=== PATIENT | female | born 1955 | race African-American/Black ===

== ENCOUNTER 2017-11-27 19:45 | Inpatient (IN) | payer MEDICARE, OTHER ==
[~2017-11-27] VITALS: Ht 162.6 cm; Wt 55.0 kg
[2017-11-27] MEDS ORDERED: ACETAMINOPHEN 500 MG TAB PO PRN (21:15)
[2017-11-27] MEDS ORDERED: hydrALAZINE HCL 20 MG/ML VL IV PRN (21:15)
[2017-11-27] MEDS ORDERED: HYDROcodone-ACET 5/325MG TAB PO PRN (21:15)
[2017-11-27] MEDS ORDERED: MORPHINE SULFATE 4 MG/ML SYR/VIAL IV PRN (21:15)
[2017-11-27 21:58] VITALS: BP 127/72
[2017-11-27 22:00] VITALS: BP 131/90
[2017-11-27] MEDS ORDERED: VANCOMYCIN PER PHARMACY 0 MG IV SCH (22:00)
[2017-11-27 22:29] LABS: Basophils # (auto) 0 uL; Eosinophils # (auto) 0.2 uL; Lymphocytes # (auto) 1.8 uL; Monocytes # (auto) 0.4 uL
[2017-11-27 22:31] LABS: Eosinophils % (auto) 3.8 % (0.0-7.0); Hematocrit 35.3 % (36.0-46.0); Hemoglobin 11.2 g/dL (12.2-16.2); Lymphocytes % (auto) 35.4 % (10.0-50.0); Mean Corpuscular Hemoglobin 24.4 pg (28.0-32.0); Mean Corpuscular Hgb Conc. 31.6 g/dL (32.0-36.0); Mean Corpuscular Volume 77.4 fL (80.0-100.0); Monocytes % (auto) 8.5 % (0.0-12.0); Neutrophils # (auto) 2.6 uL; Neutrophils % (auto) 51.3 % (37.0-80.0); Nucleated Red Blood Cells % 0.1 %; Platelet Count (auto) 192 10^3/uL (140-450); Red Blood Cells 4.56 10^6/uL (4.0-5.20); Red Cell Distribution Width 16.9 % (11.8-14.3)
[2017-11-27 22:43] LABS: Albumin 2.6 g/dL (3.4-5.0); BUN/Creatinine Ratio 35.8; Calcium 8.2 mg/dL (8.5-10.1); Potassium 3.8 mmol/L (3.5-5.1)
[2017-11-27 22:46] LABS: Bilirubin, Total 0.1 mg/dL (0.2-1.0); Total Protein 8.4 g/dL (6.4-8.2)
[2017-11-28] MEDS ORDERED: VANCOMYCIN 1GM/250ML 250 ML IV ONE
[2017-11-28] MEDS: PIPERACILLIN-TAZOB 3.375GM 100 ML IV SCH ×4 (00:27→17:41)
[2017-11-28 05:00] VITALS: BP 158/93
[2017-11-28 05:52] LABS: Basophils # (auto) 0 uL; Eosinophils # (auto) 0.1 uL; Monocytes # (auto) 0.5 uL; Nucleated Red Blood Cells % 0.1 %
[2017-11-28 05:55] LABS: Basophils % (auto) 0.4 % (0.0-2.0); Hematocrit 39.7 % (36.0-46.0); Hemoglobin 12.5 g/dL (12.2-16.2); Lymphocytes # (auto) 1.8 uL; Mean Corpuscular Hemoglobin 24.8 pg (28.0-32.0); Mean Corpuscular Hgb Conc. 31.4 g/dL (32.0-36.0); Mean Corpuscular Volume 78.9 fL (80.0-100.0); Monocytes % (auto) 10.5 % (0.0-12.0); Neutrophils # (auto) 2.4 uL; Neutrophils % (auto) 49.1 % (37.0-80.0); Platelet Count (auto) 195 10^3/uL (140-450); Red Blood Cells 5.03 10^6/uL (4.0-5.20); Red Cell Distribution Width 16.8 % (11.8-14.3); White Blood Cell 4.8 10^3/uL (4.4-10.8)
[2017-11-28] MEDS ORDERED: HYDR50TA15 PO (07:51)
[2017-11-28] MEDS ORDERED: HYDR-4683 GT (07:51)
[2017-11-28] MEDS ORDERED: ISOS30TA4 PO (07:51)
[2017-11-28] MEDS ORDERED: MULT-228 PO (07:51)
[2017-11-28] MEDS ORDERED: MOMLQ GT (07:51)
[2017-11-28] MEDS ORDERED: PHE100C PO (07:51)
[2017-11-28] MEDS ORDERED: SENN1TAB14 PO (07:51)
[2017-11-28] MEDS ORDERED: CLON0.1T PO (07:51)
[2017-11-28] MEDS ORDERED: METO-158 PO (07:51)
[2017-11-28] MEDS ORDERED: AMLO5TAB13 PO (07:51)
[2017-11-28] MEDS ORDERED: MEM5T GT (07:51)
[2017-11-28] MEDS ORDERED: FAMO-12 PO (07:51)
[2017-11-28] MEDS ORDERED: LACT10SO3 PO (07:51)
[2017-11-28] MEDS ORDERED: TRAV0.00 EACHEYE (07:51)
[2017-11-28] MEDS ORDERED: ALBU2TAB4 PO (07:51)
[2017-11-28] MEDS ORDERED: ATOR40TA52 PO (07:51)
[2017-11-28] MEDS ORDERED: ACET-1156 PO (07:51)
[2017-11-28] MEDS ORDERED: CLOP75TA41 PO (07:51)
[2017-11-28] MEDS ORDERED: DOCU-94 PO (07:51)
[2017-11-28] MEDS ORDERED: LEVE100012 PO (07:51)
[2017-11-28] MEDS ORDERED: APIX5TAB OR (07:51)
[2017-11-28 09:00] VITALS: BP 144/92
[2017-11-28] MEDS: amLODIPine BESYLATE 5 MG TAB PEG SCH (11:02)
[2017-11-28] MEDS: ISOSORBIDE MONONITRATE 60 MG TAB PO SCH ×2 (12:09→17:41)
[2017-11-28 13:00] VITALS: BP 165/109
[2017-11-28] MEDS: VANCOMYCIN 500 MG in D5W 5% 100 ML IV SCH (15:27)
[2017-11-28] MEDS: LACTULOSE 20Gm/30ML SOLN PO SCH ×2 (15:27→22:00)
[2017-11-28 17:00] VITALS: BP 149/103
[2017-11-28] MEDS: PHENYTOIN 100 MG/4 ML SUSP GT SCH (17:41)
[2017-11-28 22:00] VITALS: BP 149/103
[2017-11-28] MEDS: cloNIDine HCL 0.1 MG TAB PEG SCH (22:47)
[2017-11-28] MEDS: MEMANTINE HCL 5 MG TAB PEG SCH (22:48)
[2017-11-28] MEDS: METOPROLOL TARTRATE 50 MG TAB PEG SCH (22:48)
[2017-11-28] MEDS: SENNA 8.6 MG TAB PO SCH (22:49)
[2017-11-28] MEDS: APIXABAN 5 MG TAB PO SCH (22:49)
[2017-11-28] MEDS: ATORVASTATIN 20 MG TAB PO SCH (22:49)
[2017-11-28] MEDS: LEVETIRACETAM 500 MG/5ML ORAL SOLN UD GT SCH (22:50)
[2017-11-29] MEDS: PIPERACILLIN-TAZOB 3.375GM 100 ML IV SCH ×4 (00:20→18:02)
[2017-11-29] MEDS: ISOSORBIDE MONONITRATE 60 MG TAB PO SCH ×4 (00:21→18:03)
[2017-11-29 05:00] VITALS: BP 162/118
[2017-11-29] MEDS: VANCOMYCIN 500 MG in D5W 5% 100 ML IV SCH ×2 (05:29→14:42)
[2017-11-29] MEDS: LACTULOSE 20Gm/30ML SOLN PO SCH ×3 (06:00→21:49)
[2017-11-29 06:24] LABS: Anion Gap 12 (5-15); Blood Urea Nitrogen 15 mg/dL (7-18); Calcium 8.2 mg/dL (8.5-10.1); Carbon Dioxide 18 mmol/L (21-32); Chloride 106 mmol/L (98-107); Glucose 78 mg/dL (74-106); Potassium 4.2 mmol/L (3.5-5.1); Sodium 136 mmol/L (136-145)
[2017-11-29 06:26] LABS: GFR African American 94 mL/min; GFR Non-African American 78 mL/min
[2017-11-29] MEDS: ONDANSETRON HCL 4 MG/2 ML VIAL IV PRN ×2 (07:36→18:39)
[2017-11-29] MEDS: PHENYTOIN 100 MG/4 ML SUSP GT SCH ×2 (08:26→18:02)
[2017-11-29 08:29] LABS: Basophils # (auto) 0 uL; Basophils % (auto) 0.3 % (0.0-2.0); Eosinophils # (auto) 0 uL; Eosinophils % (auto) 0.8 % (0.0-7.0); Hematocrit 45.7 % (36.0-46.0); Hemoglobin 14.2 g/dL (12.2-16.2); Lymphocytes # (auto) 1.4 uL; Lymphocytes % (auto) 23.5 % (10.0-50.0); Mean Corpuscular Hemoglobin 24.7 pg (28.0-32.0); Mean Corpuscular Volume 79.7 fL (80.0-100.0); Monocytes # (auto) 0.5 uL; Monocytes % (auto) 8.6 % (0.0-12.0); Neutrophils % (auto) 66.8 % (37.0-80.0); Nucleated Red Blood Cells % 0.1 %; Platelet Count (auto) 215 10^3/uL (140-450); Red Blood Cells 5.74 10^6/uL (4.0-5.20); Red Cell Distribution Width 17.5 % (11.8-14.3); White Blood Cell 5.9 10^3/uL (4.4-10.8)
[2017-11-29 09:00] VITALS: BP 142/91
[2017-11-29] MEDS: FAMOTIDINE 20 MG TAB PEG SCH (09:48)
[2017-11-29] MEDS: APIXABAN 5 MG TAB PO SCH ×2 (09:48→21:49)
[2017-11-29] MEDS: MULTIPLE VITAMIN TAB PEG SCH (09:49)
[2017-11-29] MEDS: CLOPIDOGREL BISULFATE 75 MG TAB PO SCH (09:49)
[2017-11-29] MEDS: amLODIPine BESYLATE 5 MG TAB PEG SCH (09:49)
[2017-11-29] MEDS: METOPROLOL TARTRATE 50 MG TAB PEG SCH ×2 (09:49→21:48)
[2017-11-29] MEDS: MEMANTINE HCL 5 MG TAB PEG SCH ×2 (09:50→21:49)
[2017-11-29] MEDS: cloNIDine HCL 0.1 MG TAB PEG SCH ×2 (09:50→21:47)
[2017-11-29] MEDS: LEVETIRACETAM 500 MG/5ML ORAL SOLN UD GT SCH ×2 (09:59→21:47)
[2017-11-29 13:00] VITALS: BP 121/91
[2017-11-29 17:00] VITALS: BP 115/74
[2017-11-29] MEDS: Jevity 1.2 Cal/Fiber 1 Liter GT SCH (18:05)
[2017-11-29] MEDS: SENNA 8.6 MG TAB PO SCH (21:49)
[2017-11-29] MEDS: ATORVASTATIN 20 MG TAB PO SCH (21:49)
[2017-11-29 22:39] VITALS: BP 118/75
[2017-11-30] MEDS: VANCOMYCIN 500 MG in D5W 5% 100 ML IV SCH ×2 (03:01→15:27)
[2017-11-30 05:53] VITALS: BP 102/69
[2017-11-30] MEDS: PIPERACILLIN-TAZOB 3.375GM 100 ML IV SCH ×5 (05:54→23:48)
[2017-11-30] MEDS: ISOSORBIDE MONONITRATE 60 MG TAB PO SCH ×6 (05:55→23:49)
[2017-11-30] MEDS: LACTULOSE 20Gm/30ML SOLN PO SCH ×3 (05:55→21:14)
[2017-11-30 06:48] LABS: Basophils # (auto) 0 uL; Basophils % (auto) 0.5 % (0.0-2.0); Eosinophils # (auto) 0 uL; Hemoglobin 11.9 g/dL (12.2-16.2); Lymphocytes # (auto) 1.3 uL; Monocytes # (auto) 0.5 uL; Neutrophils # (auto) 2.7 uL
[2017-11-30 06:51] LABS: Hematocrit 37.4 % (36.0-46.0); Mean Corpuscular Hemoglobin 24.5 pg (28.0-32.0); Mean Corpuscular Hgb Conc. 31.9 g/dL (32.0-36.0); Mean Corpuscular Volume 76.9 fL (80.0-100.0); Monocytes % (auto) 11.2 % (0.0-12.0); Neutrophils % (auto) 59.3 % (37.0-80.0); Platelet Count (auto) 210 10^3/uL (140-450); Red Blood Cells 4.86 10^6/uL (4.0-5.20); Red Cell Distribution Width 17.1 % (11.8-14.3); White Blood Cell 4.6 10^3/uL (4.4-10.8)
[2017-11-30 08:00] VITALS: BP 118/75
[2017-11-30] MEDS: PHENYTOIN 100 MG/4 ML SUSP GT SCH ×3 (08:00→17:28)
[2017-11-30 09:00] VITALS: BP 118/75
[2017-11-30] MEDS: METOPROLOL TARTRATE 50 MG TAB PEG SCH ×3 (10:00→21:14)
[2017-11-30] MEDS: LEVETIRACETAM 500 MG/5ML ORAL SOLN UD GT SCH ×3 (10:00→21:12)
[2017-11-30] MEDS: cloNIDine HCL 0.1 MG TAB PEG SCH ×2 (10:00→21:13)
[2017-11-30] MEDS: MEMANTINE HCL 5 MG TAB PEG SCH ×3 (10:00→21:14)
[2017-11-30] MEDS: amLODIPine BESYLATE 5 MG TAB PEG SCH ×2 (10:00→10:17)
[2017-11-30] MEDS: MULTIPLE VITAMIN TAB PEG SCH ×2 (10:00→10:18)
[2017-11-30] MEDS: CLOPIDOGREL BISULFATE 75 MG TAB PO SCH ×2 (10:00→10:17)
[2017-11-30] MEDS: FAMOTIDINE 20 MG TAB PEG SCH ×2 (10:00→10:16)
[2017-11-30] MEDS: APIXABAN 5 MG TAB PO SCH ×3 (10:00→21:15)
[2017-11-30 13:00] VITALS: BP 157/98
[2017-11-30 17:00] VITALS: BP 139/82
[2017-11-30] MEDS: Jevity 1.2 Cal/Fiber 1 Liter GT SCH (17:28)
[2017-11-30] MEDS: ATORVASTATIN 20 MG TAB PO SCH (21:14)
[2017-11-30] MEDS: SENNA 8.6 MG TAB PO SCH (21:15)
[2017-11-30 21:41] VITALS: BP 143/108
[2017-12-01 02:16] LABS: Eosinophils # (auto) 0.1 uL; Lymphocytes # (auto) 1.4 uL; Monocytes # (auto) 0.5 uL; Neutrophils # (auto) 3.4 uL; White Blood Cell 5.4 10^3/uL (4.4-10.8)
[2017-12-01 02:17] LABS: Basophils # (auto) 0 uL; Basophils % (auto) 0.9 % (0.0-2.0); Hematocrit 35.3 % (36.0-46.0); Hemoglobin 10.9 g/dL (12.2-16.2); Lymphocytes % (auto) 25.4 % (10.0-50.0); Mean Corpuscular Volume 76.6 fL (80.0-100.0); Monocytes % (auto) 9.5 % (0.0-12.0); Neutrophils % (auto) 63.2 % (37.0-80.0); Platelet Count (auto) 227 10^3/uL (140-450); Red Blood Cells 4.61 10^6/uL (4.0-5.20); Red Cell Distribution Width 17.1 % (11.8-14.3)
[2017-12-01 02:38] LABS: Mean Corpuscular Hemoglobin 24.1 pg (28.0-32.0)
[2017-12-01] MEDS: VANCOMYCIN 500 MG in D5W 5% 100 ML IV SCH ×2 (03:38→16:38)
[2017-12-01 06:00] VITALS: BP 123/74
[2017-12-01] MEDS: LACTULOSE 20Gm/30ML SOLN PO SCH ×3 (06:00→22:00)
[2017-12-01] MEDS: PIPERACILLIN-TAZOB 3.375GM 100 ML IV SCH ×3 (06:08→19:45)
[2017-12-01] MEDS: ISOSORBIDE MONONITRATE 60 MG TAB PO SCH ×3 (06:09→19:46)
[2017-12-01] MEDS: PHENYTOIN 100 MG/4 ML SUSP GT SCH ×2 (08:00→19:45)
[2017-12-01 09:00] VITALS: BP 120/72
[2017-12-01] MEDS: LEVETIRACETAM 500 MG/5ML ORAL SOLN UD GT SCH ×2 (09:40→22:39)
[2017-12-01] MEDS: cloNIDine HCL 0.1 MG TAB PEG SCH ×2 (09:40→22:37)
[2017-12-01] MEDS: MULTIPLE VITAMIN TAB PEG SCH (09:41)
[2017-12-01] MEDS: METOPROLOL TARTRATE 50 MG TAB PEG SCH ×2 (09:41→22:37)
[2017-12-01] MEDS: MEMANTINE HCL 5 MG TAB PEG SCH ×2 (09:42→22:37)
[2017-12-01] MEDS: FAMOTIDINE 20 MG TAB PEG SCH (09:43)
[2017-12-01] MEDS: amLODIPine BESYLATE 5 MG TAB PEG SCH (11:19)
[2017-12-01] MEDS: CLOPIDOGREL BISULFATE 75 MG TAB PO SCH (11:20)
[2017-12-01] MEDS: APIXABAN 5 MG TAB PO SCH ×2 (11:20→22:38)
[2017-12-01 11:51] VITALS: BP 133/79
[2017-12-01 16:08] VITALS: BP 135/74
[2017-12-01] MEDS: Jevity 1.2 Cal/Fiber 1 Liter GT SCH (19:46)
[2017-12-01 20:00] VITALS: BP 129/89
[2017-12-01 21:36] VITALS: BP 129/89
[2017-12-01] MEDS: SENNA 8.6 MG TAB PO SCH (22:00)
[2017-12-01] MEDS: ATORVASTATIN 20 MG TAB PO SCH (22:38)
[2017-12-02] MEDS: ISOSORBIDE MONONITRATE 60 MG TAB PO SCH ×4 (01:01→18:05)
[2017-12-02] MEDS: PIPERACILLIN-TAZOB 3.375GM 100 ML IV SCH ×5 (01:01→23:24)
[2017-12-02] MEDS: VANCOMYCIN 500 MG in D5W 5% 100 ML IV SCH ×2 (02:58→19:57)
[2017-12-02 05:26] LABS: Basophils # (auto) 0 uL; Eosinophils # (auto) 0.1 uL; Lymphocytes # (auto) 1.3 uL; Neutrophils # (auto) 3.4 uL; White Blood Cell 5.5 10^3/uL (4.4-10.8)
[2017-12-02 05:29] LABS: Basophils % (auto) 0.3 % (0.0-2.0); Eosinophils % (auto) 1.3 % (0.0-7.0); Hematocrit 34.6 % (36.0-46.0); Hemoglobin 11.2 g/dL (12.2-16.2); Lymphocytes % (auto) 23.9 % (10.0-50.0); Mean Corpuscular Hgb Conc. 32.2 g/dL (32.0-36.0); Mean Corpuscular Volume 76.6 fL (80.0-100.0); Monocytes # (auto) 0.6 uL; Monocytes % (auto) 11.5 % (0.0-12.0); Nucleated Red Blood Cells % 0.2 %; Platelet Count (auto) 195 10^3/uL (140-450); Red Blood Cells 4.52 10^6/uL (4.0-5.20); Red Cell Distribution Width 16.9 % (11.8-14.3)
[2017-12-02 05:48] VITALS: BP 142/94
[2017-12-02] MEDS: LACTULOSE 20Gm/30ML SOLN PO SCH ×3 (06:00→20:50)
[2017-12-02 08:37] LABS: BUN/Creatinine Ratio 19.5; Calcium 8.1 mg/dL (8.5-10.1); Potassium 3.5 mmol/L (3.5-5.1)
[2017-12-02] MEDS: PHENYTOIN 100 MG/4 ML SUSP GT SCH ×2 (08:49→18:06)
[2017-12-02 09:00] VITALS: BP 157/78
[2017-12-02] MEDS: LEVETIRACETAM 500 MG/5ML ORAL SOLN UD GT SCH ×2 (10:44→22:46)
[2017-12-02] MEDS: CLOPIDOGREL BISULFATE 75 MG TAB PO SCH (10:44)
[2017-12-02] MEDS: FAMOTIDINE 20 MG TAB PEG SCH (10:44)
[2017-12-02] MEDS: MULTIPLE VITAMIN TAB PEG SCH (10:45)
[2017-12-02] MEDS: APIXABAN 5 MG TAB PO SCH ×2 (10:45→22:47)
[2017-12-02] MEDS: cloNIDine HCL 0.1 MG TAB PEG SCH ×2 (10:46→22:47)
[2017-12-02] MEDS: MEMANTINE HCL 5 MG TAB PEG SCH ×2 (10:46→22:47)
[2017-12-02] MEDS: METOPROLOL TARTRATE 50 MG TAB PEG SCH ×2 (10:46→22:47)
[2017-12-02] MEDS: amLODIPine BESYLATE 5 MG TAB PEG SCH (10:47)
[2017-12-02 13:00] VITALS: BP 150/70
[2017-12-02 17:00] VITALS: BP 152/71
[2017-12-02] MEDS: Jevity 1.2 Cal/Fiber 1 Liter GT SCH (18:06)
[2017-12-02 22:00] VITALS: BP 126/73
[2017-12-02] MEDS: ATORVASTATIN 20 MG TAB PO SCH (22:47)
[2017-12-02] MEDS: SENNA 8.6 MG TAB PO SCH (22:48)
[2017-12-03] MEDS: ISOSORBIDE MONONITRATE 60 MG TAB PO SCH ×4 (01:00→18:15)
[2017-12-03 05:34] VITALS: BP 136/98
[2017-12-03] MEDS: PIPERACILLIN-TAZOB 3.375GM 100 ML IV SCH ×3 (05:52→18:14)
[2017-12-03] MEDS: LACTULOSE 20Gm/30ML SOLN PO SCH ×3 (05:52→21:40)
[2017-12-03] MEDS: PHENYTOIN 100 MG/4 ML SUSP GT SCH ×2 (08:40→18:14)
[2017-12-03 09:00] VITALS: BP 117/72
[2017-12-03] MEDS: CLOPIDOGREL BISULFATE 75 MG TAB PO SCH (10:35)
[2017-12-03] MEDS: APIXABAN 5 MG TAB PO SCH ×2 (10:35→22:54)
[2017-12-03] MEDS: MEMANTINE HCL 5 MG TAB PEG SCH ×2 (10:35→22:54)
[2017-12-03] MEDS: FAMOTIDINE 20 MG TAB PEG SCH (10:35)
[2017-12-03] MEDS: MULTIPLE VITAMIN TAB PEG SCH (10:36)
[2017-12-03] MEDS: METOPROLOL TARTRATE 50 MG TAB PEG SCH ×2 (10:36→22:54)
[2017-12-03] MEDS: amLODIPine BESYLATE 5 MG TAB PEG SCH (10:36)
[2017-12-03] MEDS: cloNIDine HCL 0.1 MG TAB PEG SCH ×2 (10:37→22:54)
[2017-12-03] MEDS: LEVETIRACETAM 500 MG/5ML ORAL SOLN UD GT SCH ×2 (10:37→22:55)
[2017-12-03] MEDS: VANCOMYCIN 500 MG in D5W 5% 100 ML IV SCH (11:39)
[2017-12-03 13:01] VITALS: BP 116/71
[2017-12-03 17:01] VITALS: BP 140/97
[2017-12-03] MEDS: Jevity 1.2 Cal/Fiber 1 Liter GT SCH (18:14)
[2017-12-03] MEDS: SENNA 8.6 MG TAB PO SCH (21:41)
[2017-12-03 22:00] VITALS: BP 153/77
[2017-12-03] MEDS: ATORVASTATIN 20 MG TAB PO SCH (22:55)
[2017-12-04] MEDS: PIPERACILLIN-TAZOB 3.375GM 100 ML IV SCH ×3 (00:15→13:27)
[2017-12-04] MEDS: ISOSORBIDE MONONITRATE 60 MG TAB PO SCH ×3 (00:15→13:29)
[2017-12-04] MEDS: VANCOMYCIN 500 MG in D5W 5% 100 ML IV SCH (04:02)
[2017-12-04 04:51] VITALS: BP 139/76
[2017-12-04] MEDS: LACTULOSE 20Gm/30ML SOLN PO SCH ×2 (05:21→13:29)
[2017-12-04] MEDS: PHENYTOIN 100 MG/4 ML SUSP GT SCH (08:38)
[2017-12-04] MEDS: amLODIPine BESYLATE 5 MG TAB PEG SCH (08:39)
[2017-12-04] MEDS: cloNIDine HCL 0.1 MG TAB PEG SCH (08:40)
[2017-12-04] MEDS: METOPROLOL TARTRATE 50 MG TAB PEG SCH (08:41)
[2017-12-04] MEDS: MEMANTINE HCL 5 MG TAB PEG SCH (08:43)
[2017-12-04] MEDS: FAMOTIDINE 20 MG TAB PEG SCH (08:44)
[2017-12-04] MEDS: MULTIPLE VITAMIN TAB PEG SCH (08:44)
[2017-12-04] MEDS: APIXABAN 5 MG TAB PO SCH (08:44)
[2017-12-04] MEDS: CLOPIDOGREL BISULFATE 75 MG TAB PO SCH (08:44)
[2017-12-04] MEDS ORDERED: VANCOMYCIN 1GM/250ML 250 ML IV SCH (09:00)
[2017-12-04 09:02] VITALS: BP 150/102
[2017-12-04 13:11] VITALS: BP 134/94
[2017-12-04] MEDS: LEVETIRACETAM 500 MG/5ML ORAL SOLN UD GT SCH (13:34)
[2017-12-04 17:10] VITALS: BP 142/88
== END 2017-12-04 18:25 | DRG 603 ==
LOC: CENTRAL 19:45 → TELE-CENTR 11-28 05:40
PROVIDERS: ADMIT Internal Medicine; ATTEND Internal Medicine
DX: L02.214 Cutaneous abscess of groin (principal); E44.0 Moderate protein-calorie malnutrition; I10 Essential (primary) hypertension; L98.419 Non-pressure chronic ulcer of buttock with unspecified severity; F03.90 Unspecified dementia, unspecified severity, without behavioral disturbance, psychotic disturbance, mood disturbance, and anxiety; I07.1 Rheumatic tricuspid insufficiency; I25.10 Atherosclerotic heart disease of native coronary artery without angina pectoris; I48.91 Unspecified atrial fibrillation; K21.9 Gastro-esophageal reflux disease without esophagitis; Z86.73 Personal history of transient ischemic attack (TIA), and cerebral infarction without residual deficits; Z79.899 Other long term (current) drug therapy
CPT/HCPCS: 36415; 80048; 80053; 80202; 85025; 87040; 87077; 87081; 87186; 87205; 92610; 93306; J2405; J2543; J7060